=== PATIENT | male | born 1980 | race Caucasian/White ===

== ENCOUNTER 2020-02-24 12:24 | Emergency (ER) | payer BC, OTHER ==
--- NOTE | 2020-02-24 14:00 | ULT ---
ULTRASOUND SCROTUM AND TESTICLES DOPPLER DUPLEX: DATE: 02/24/2020 HISTORY: Left testicular pain in 39-year-old male. Rule out torsion. TECHNIQUE: Grayscale evaluation of intrascrotal contents. Color flow Doppler and spectral waveform analysis of t he testicles. FINDINGS: The bilateral testicles are normal in size, and have homogeneously normal echogenicity, and have symm etrical blood flow. The epididymal heads are bilaterally normal in size. There is no intratesticular mass or varicocele. There is a small left hydrocele. IMPRESSION: 1) small left hydrocele. 2) otherwise negative.
[2020-02-24 14:39] LABS: #Basophils 0.1 thou/uL (0.0-0.2); #Eosinphils 0.1 thou/uL (0.0-0.7); #Lymphocytes 1.5 thou/uL (1.20-3.40); #Monocytes 0.4 thou/uL (0.11-0.59); #Neutrophils 9.4 thou/uL (1.40-6.50); %Basophils 0.5 % (0.0-1.0); %Eosinophils 0.7 % (0.0-10.0); %Lymphocytes 13.4 % (21.0-51.0); %Monocytes 3.2 % (0.0-10.0); %Neutrophils 82.2 % (42.0-75.0); Hemoglobin 15.5 g/dL (14.0-18.0); Mean Corpuscular HGB CONC 34.1 g/dL (32.0-36.0); Mean Corpuscular Hemoglobin 30.8 pg (27.0-31.0); Mean Corpuscular Volume 90.2 fL (78.0-98.0); Mean Platelet Volume 7.2 fL (7.4-10.4); Platelet Count 279 thou/uL (130-400); RBC Distribution Width 10.9 % (11.5-14.5); Red Blood Cell (RBC) Count 5.05 mill/uL (4.70-6.10); White Blood Cell (WBC) Count 11.4 thou/uL (4.8-10.8)
[2020-02-24 15:01] LABS: ALT (SGPT) 52 U/L (8-55); AST (SGOT) 34 U/L (5-34); Albumin 4.6 g/dL (3.5-5.0); Alkaline Phosphatase 57 U/L (40-110); Anion Gap 13 mmol/L (10-20); BUN (Urea Nitrogen) 13 mg/dL (8.9-20.6); Bilirubin, Total 0.6 mg/dL (0.2-1.2); Calc. Creatinine Clearance 0 mL/min (70-130); Calcium 9.3 mg/dL (7.8-10.44); Carbon Dioxide 25 mmol/L (22-29); Chloride 104 mmol/L (98-107); Estimated GFR-MDRD 79; Globulin 2.6 g/dL (2.4-3.5); Glucose 106 mg/dL (70-105); Lipase 10 U/L (8-78); Potassium 4.5 mmol/L (3.5-5.1); Protein, Total 7.2 g/dL (6.0-8.3); Sodium 137 mmol/L (136-145)
--- NOTE | 2020-02-24 16:21 | CT ---
EXAM: ABDOMEN AND PELVIC CT SCAN WITHOUT IV CONTRAST: 02/24/20 HISTORY: Back pain radiating into left testis. FINDINGS: The lung bases are clear. Small hiatal hernia with minimal thickening of the distal esophagus, nonspecific. Heterogeneous fatty changes in the liver. Gallbladder, pancreas, spleen, adrenal glands, are unremarkable. No renal calculus or acute obstru ction. Normal appearing appendix. There is some minimal fat stranding in the central mesentery with s ome up to borderline sized lymph nodes possibly representing some mild mesenteric panniculitis. No a bnormal fluid collection of other acute process. IMPRESSION: 1. No renal calculus or acute obstruction. No CT evidence for an acute appendicitis. Some sub tle fat stranding in the central mesentery with a few borderline enlarged lymph nodes possibly repres enting some minimal or mild mesentery panniculitis. 2. Heterogeneous fatty changes in the liver. POS: RRE
== END 2020-02-24 16:02 | disposition home or self-care (01) ==
LOC: ERS 12:24
DX: I88.0 Nonspecific mesenteric lymphadenitis (principal); N50.812 Left testicular pain
CPT/HCPCS: 36415; 74176; 76870; 80053; 83690; 85025; 93976